=== PATIENT | female | born 1950 | race Caucasian/White ===

== ENCOUNTER 2018-02-06 21:05 | Inpatient (IN) ==
[2018-02-06] MEDS ORDERED: ONDANSETRON 4 MG/2 ML VIAL IV STA (21:24)
[2018-02-06] MEDS ORDERED: MORPHINE 4 MG/1 ML VIAL IV STA (21:24)
[2018-02-06] MEDS ORDERED: diphenhydrAMINE 50 MG/1 ML VIAL IV STA (21:30)
[2018-02-06 21:34] LABS: Basophils # 0.1 10*3/uL (0.0-0.2); Basophils % 0.7 % (0.0-0.8); Eosinophils # 0.3 10*3/uL (0.0-0.87); Eosinophils % 2.8 % (0.00-10.9); Hematocrit 42.4 VOL% (35.7-47.0); Hemoglobin 13.7 GM/DL (12.0-16.0); Immature Granulocytes % 0.4 %; Immature Granulocytes Absolute 0.05 #; Lymphocytes # 1.8 10*3/uL (1.4-4.0); Mean Corpuscular HGB Conc 32.3 GM/DL (32-36); Mean Corpuscular Hemoglobin 26 PG (27-34); Mean Corpuscular Volume 81.1 FL (87-102); Monocytes # 1.4 10*3/uL (0.11-0.8); Monocytes % 11.4 % (1.7-12.7); Neutrophils # 8.3 10*3/uL (1.4-7.4); Neutrophils % 69.7 % (38.7-73.9); Platelet Count 193 T/CUMM (130-400); Red Blood Count 5.23 MC/CUMM (3.8-5.5); Red Cell Distribution Width 14.2 % (9.3-17.3); White Blood Count 11.9 T/CUMM (4-12)
[2018-02-06 21:49] LABS: Albumin 3.1 G/DL (3.4-5.0); Bilirubin,Total 1.1 MG/DL (0.2-1.0); Osmolality,Calculated 284.7 MOS/KG (273-304); Potassium 4.2 MMOL/L (3.5-5.1); Total Protein 6.8 G/DL (6.4-8.3)
[2018-02-06] MEDS ORDERED: LACTATED RINGERS 1,000 ML IV SCH (22:30)
[2018-02-06] MEDS: SODIUM CHLORIDE 0.9% 1,000 ML IV SCH (23:44)
[2018-02-07 00:48] LABS: Bilirubin,Total 1.2 MG/DL (0.2-1.0); Potassium 4.3 MMOL/L (3.5-5.1); Total Protein 6.8 G/DL (6.4-8.3)
[2018-02-07] MEDS: HYDROmorphone 2 MG/1 ML VIAL IV PRN ×3 (01:34→11:28)
[2018-02-07] MEDS ORDERED: GLUCAGON 1 MG VIAL IM PRN (06:37)
[2018-02-07] MEDS ORDERED: DEXTROSE 50% 25 GM/50 ML VIAL IV PRN (06:37)
[2018-02-07] MEDS ORDERED: ceFAZolin 2,000 MG in PREMIX 1 EACH IV ONE ×2 (06:38→15:00)
[2018-02-07] MEDS: SODIUM CHLORIDE 0.9% 1,000 ML IV SCH ×3 (07:47→21:32)
[2018-02-07] MEDS ORDERED: traMADol 50 MG TABLET PO PRN (08:37)
[2018-02-07] MEDS ORDERED: GABAPENTIN 300 MG CAPSULE PO SCH (09:00)
[2018-02-07] MEDS: CARVEDILOL 3.125 MG TABLET PO SCH ×2 (09:11→21:12)
[2018-02-07] MEDS: MULTIVITAMIN (CENTRUM) TABLET PO SCH ×2 (09:28→21:12)
[2018-02-07] MEDS: CALCIUM (CARBONATE)/VITAMIN D 600 MG-400 UNIT TABLET PO SCH ×2 (09:28→21:12)
[2018-02-07] MEDS: metFORMIN 500 MG TABLET PO SCH (09:28)
[2018-02-07] MEDS: FERROUS SULFATE ER 140 MG TABLET PO SCH (09:29)
[2018-02-07] MEDS: FAMOTIDINE 20 MG TABLET PO SCH ×2 (09:29→21:12)
[2018-02-07] MEDS: CHLORTHALIDONE 25 MG TABLET PO SCH (09:29)
[2018-02-07] MEDS: GABAPENTIN 600 MG TABLET PO SCH ×5 (09:29→21:12)
[2018-02-07] MEDS: ZINC GLUCONATE 50 MG TABLET PO SCH (09:30)
[2018-02-07] MEDS: CHOLECALCIFEROL 1,000 UNIT TABLET PO SCH (09:30)
[2018-02-07] MEDS: MAGNESIUM CHLORIDE 64 MG TABLET PO SCH ×2 (09:30→21:12)
[2018-02-07] MEDS: INSULIN LISPRO 100 UNIT/ML SUBCUT SCH ×2 (10:03→19:16)
[2018-02-07] MEDS ORDERED: ROPIVACAINE 0.5% 30 ML VIAL ONE (15:12)
[2018-02-07] MEDS ORDERED: LACTULOSE 20 GM/30 ML UDCUP PO PRN (17:08)
[2018-02-07] MEDS ORDERED: ONDANSETRON 4 MG/2 ML VIAL IV PRN (17:08)
[2018-02-07] MEDS ORDERED: MORPHINE 4 MG/1 ML VIAL IV PRN ×2 (17:08→17:31)
[2018-02-07] MEDS ORDERED: NALOXONE 0.4 MG/ML VIAL IV PRN (17:08)
[2018-02-07] MEDS ORDERED: HYDROmorphone 2 MG/1 ML VIAL ONE (17:27)
[2018-02-07] MEDS ORDERED: fentaNYL 100 MCG/2 ML VIAL ONE (17:29)
[2018-02-07] MEDS ORDERED: ONDANSETRON 4 MG/2 ML VIAL ONE (17:29)
[2018-02-07] MEDS ORDERED: SEVOFLURANE 1 UNIT/15 MINUTE INH ONE (17:29)
[2018-02-07] MEDS ORDERED: ROCURONIUM 100 MG/10 ML VIAL IV ONE (17:29)
[2018-02-07] MEDS ORDERED: PROPOFOL 200 MG/20 ML VIAL IV ONE (17:29)
[2018-02-07] MEDS ORDERED: LACTATED RINGERS 1,000 ML IV ONE (17:29)
[2018-02-07] MEDS ORDERED: MIDAZOLAM 2 MG/2 ML VIAL ONE (17:29)
[2018-02-07] MEDS ORDERED: SODIUM CHLORIDE 0.9% 1,000 ML IV ONE (17:30)
[2018-02-07] MEDS ORDERED: MORPHINE PCA 30 MG/30 ML SYRINGE IV SCH (17:30)
[2018-02-07] MEDS ORDERED: MORPHINE PCA 30 MG/30 ML SYRINGE IV ONE (18:03)
[2018-02-07] MEDS ORDERED: Liraglutide [Victoza 2-Pak] 1.2 MG SUBCUT SCH (21:00)
[2018-02-07] MEDS: INSULIN GLARGINE 100 UNIT/ML SUBCUT SCH (21:11)
[2018-02-07] MEDS: AMITRIPTYLINE 25 MG TABLET PO SCH (21:12)
[2018-02-07] MEDS: diphenhydrAMINE CAP 25 MG CAPSULE PO SCH (21:12)
[2018-02-07] MEDS: ATORVASTATIN 10 MG TABLET PO SCH (21:12)
[2018-02-07] MEDS ORDERED: metFORMIN 500 MG TABLET PO SCH (22:30)
[2018-02-08] MEDS: INSULIN LISPRO 100 UNIT/ML SUBCUT SCH ×4 (00:39→18:13)
[2018-02-08] MEDS: ceFAZolin 2,000 MG in PREMIX 1 EACH IV SCH ×3 (00:40→16:10)
[2018-02-08] MEDS: metFORMIN 500 MG TABLET PO SCH ×3 (03:28→17:35)
[2018-02-08 06:27] LABS: Basophils # 0.1 10*3/uL (0.0-0.2); Basophils % 0.4 % (0.0-0.8); Eosinophils # 0.2 10*3/uL (0.0-0.87); Eosinophils % 1.5 % (0.00-10.9); Hematocrit 31.5 VOL% (35.7-47.0); Immature Granulocytes % 0.3 %; Immature Granulocytes Absolute 0.04 #; Lymphocytes # 1.5 10*3/uL (1.4-4.0); Lymphocytes % 10.8 % (21.3-54.2); Mean Corpuscular HGB Conc 31.7 GM/DL (32-36); Mean Corpuscular Hemoglobin 26 PG (27-34); Mean Corpuscular Volume 83.1 FL (87-102); Mean Platelet Volume 12.3 FL (9.6-12.0); Monocytes # 2.3 10*3/uL (0.11-0.8); Monocytes % 16.5 % (1.7-12.7); Neutrophils # 9.9 10*3/uL (1.4-7.4); Neutrophils % 70.5 % (38.7-73.9); Platelet Count 183 T/CUMM (130-400); Red Blood Count 3.79 MC/CUMM (3.8-5.5); Red Cell Distribution Width 14.6 % (9.3-17.3)
[2018-02-08 06:44] LABS: Calcium 8.2 MG/DL (8.5-10.1); Osmolality,Calculated 277.7 MOS/KG (273-304); Potassium 4.1 MMOL/L (3.5-5.1)
[2018-02-08 06:57] LABS: Band Neutrophils 2 % (0-10); Eosinophils 2 % (0-10); Hypochromasia 1+; Lymphocytes 7 % (20-55); Platelet Estimate Adequate; Segmented Neutrophils 70 % (50-85); Total Cells Counted 100
[2018-02-08] MEDS ORDERED: Biotin [Biotin] 1,000 MCG PO SCH (09:00)
[2018-02-08] MEDS: FONDAPARINUX 2.5 MG/0.5 ML SYRINGE SUBCUT SCH (09:04)
[2018-02-08] MEDS: ZINC GLUCONATE 50 MG TABLET PO SCH (09:05)
[2018-02-08] MEDS: CHOLECALCIFEROL 1,000 UNIT TABLET PO SCH (09:06)
[2018-02-08] MEDS: MAGNESIUM CHLORIDE 64 MG TABLET PO SCH ×2 (09:07→20:32)
[2018-02-08] MEDS: CARVEDILOL 3.125 MG TABLET PO SCH ×2 (09:07→20:32)
[2018-02-08] MEDS: CALCIUM (CARBONATE)/VITAMIN D 600 MG-400 UNIT TABLET PO SCH ×2 (09:07→20:32)
[2018-02-08] MEDS: GABAPENTIN 600 MG TABLET PO SCH ×4 (09:07→20:32)
[2018-02-08] MEDS: CHLORTHALIDONE 25 MG TABLET PO SCH (09:07)
[2018-02-08] MEDS: MULTIVITAMIN (CENTRUM) TABLET PO SCH ×2 (09:07→20:32)
[2018-02-08] MEDS: FERROUS SULFATE ER 140 MG TABLET PO SCH (09:08)
[2018-02-08] MEDS: FAMOTIDINE 20 MG TABLET PO SCH ×2 (09:08→20:32)
[2018-02-08] MEDS: SODIUM CHLORIDE 0.9% 1,000 ML IV SCH (18:13)
[2018-02-08] MEDS: ATORVASTATIN 10 MG TABLET PO SCH (20:32)
[2018-02-08] MEDS: diphenhydrAMINE CAP 25 MG CAPSULE PO SCH (20:32)
[2018-02-08] MEDS: AMITRIPTYLINE 25 MG TABLET PO SCH (20:32)
[2018-02-08] MEDS: INSULIN GLARGINE 100 UNIT/ML SUBCUT SCH (20:33)
[2018-02-09] MEDS: INSULIN LISPRO 100 UNIT/ML SUBCUT SCH ×4 (00:50→18:52)
[2018-02-09] MEDS: SODIUM CHLORIDE 0.9% 1,000 ML IV SCH (00:54)
[2018-02-09 06:00] LABS: Basophils # 0.1 10*3/uL (0.0-0.2); Basophils % 0.4 % (0.0-0.8); Eosinophils # 0.1 10*3/uL (0.0-0.87); Eosinophils % 0.3 % (0.00-10.9); Hematocrit 29.5 VOL% (35.7-47.0); Hemoglobin 9.7 GM/DL (12.0-16.0); Immature Granulocytes % 0.5 %; Immature Granulocytes Absolute 0.09 #; Lymphocytes # 1.8 10*3/uL (1.4-4.0); Lymphocytes % 10.8 % (21.3-54.2); Mean Corpuscular HGB Conc 32.9 GM/DL (32-36); Mean Corpuscular Hemoglobin 27 PG (27-34); Mean Corpuscular Volume 81.7 FL (87-102); Mean Platelet Volume 12.2 FL (9.6-12.0); Monocytes % 17.8 % (1.7-12.7); Neutrophils # 11.7 10*3/uL (1.4-7.4); Neutrophils % 70.2 % (38.7-73.9); Platelet Count 157 T/CUMM (130-400); Red Blood Count 3.61 MC/CUMM (3.8-5.5); Red Cell Distribution Width 14.4 % (9.3-17.3); White Blood Count 16.7 T/CUMM (4-12)
[2018-02-09 06:38] LABS: Calcium 8.3 MG/DL (8.5-10.1); Osmolality,Calculated 278.8 MOS/KG (273-304); Potassium 3.9 MMOL/L (3.5-5.1)
[2018-02-09 07:06] LABS: Band Neutrophils 2 % (0-10); Lymphocytes 11 % (20-55); Platelet Estimate Normal; Segmented Neutrophils 68 % (50-85); Total Cells Counted 100
[2018-02-09] MEDS: CHOLECALCIFEROL 1,000 UNIT TABLET PO SCH (09:20)
[2018-02-09] MEDS: ZINC GLUCONATE 50 MG TABLET PO SCH (09:20)
[2018-02-09] MEDS: CHLORTHALIDONE 25 MG TABLET PO SCH (09:21)
[2018-02-09] MEDS: MAGNESIUM HYDROXIDE SUSP 30 ML UDCUP PO PRN (09:21)
[2018-02-09] MEDS: GABAPENTIN 600 MG TABLET PO SCH ×4 (09:21→21:22)
[2018-02-09] MEDS: FONDAPARINUX 2.5 MG/0.5 ML SYRINGE SUBCUT SCH (09:21)
[2018-02-09] MEDS: FERROUS SULFATE ER 140 MG TABLET PO SCH (09:21)
[2018-02-09] MEDS: MAGNESIUM CHLORIDE 64 MG TABLET PO SCH ×2 (09:21→21:23)
[2018-02-09] MEDS: CALCIUM (CARBONATE)/VITAMIN D 600 MG-400 UNIT TABLET PO SCH ×2 (09:21→21:23)
[2018-02-09] MEDS: CARVEDILOL 3.125 MG TABLET PO SCH ×2 (09:21→21:23)
[2018-02-09] MEDS: MULTIVITAMIN (CENTRUM) TABLET PO SCH ×2 (09:21→21:22)
[2018-02-09] MEDS: metFORMIN 500 MG TABLET PO SCH ×2 (09:21→16:42)
[2018-02-09] MEDS: FAMOTIDINE 20 MG TABLET PO SCH ×2 (09:21→21:22)
[2018-02-09] MEDS: ATORVASTATIN 10 MG TABLET PO SCH (21:23)
[2018-02-09] MEDS: diphenhydrAMINE CAP 25 MG CAPSULE PO SCH (21:23)
[2018-02-09] MEDS: AMITRIPTYLINE 25 MG TABLET PO SCH (21:23)
[2018-02-09] MEDS: INSULIN GLARGINE 100 UNIT/ML SUBCUT SCH (21:23)
[2018-02-10] MEDS: INSULIN LISPRO 100 UNIT/ML SUBCUT SCH ×5 (00:30→23:21)
[2018-02-10] MEDS: ZINC GLUCONATE 50 MG TABLET PO SCH (11:03)
[2018-02-10] MEDS: FONDAPARINUX 2.5 MG/0.5 ML SYRINGE SUBCUT SCH (11:03)
[2018-02-10] MEDS: CARVEDILOL 3.125 MG TABLET PO SCH ×2 (11:04→21:04)
[2018-02-10] MEDS: MULTIVITAMIN (CENTRUM) TABLET PO SCH ×2 (11:04→21:04)
[2018-02-10] MEDS: FERROUS SULFATE ER 140 MG TABLET PO SCH (11:04)
[2018-02-10] MEDS: CHOLECALCIFEROL 1,000 UNIT TABLET PO SCH (11:04)
[2018-02-10] MEDS: CHLORTHALIDONE 25 MG TABLET PO SCH (11:04)
[2018-02-10] MEDS: GABAPENTIN 600 MG TABLET PO SCH ×4 (11:04→21:04)
[2018-02-10] MEDS: metFORMIN 500 MG TABLET PO SCH ×2 (11:04→17:27)
[2018-02-10] MEDS: FAMOTIDINE 20 MG TABLET PO SCH ×2 (11:05→21:04)
[2018-02-10] MEDS: CALCIUM (CARBONATE)/VITAMIN D 600 MG-400 UNIT TABLET PO SCH ×2 (11:05→21:04)
[2018-02-10] MEDS: MAGNESIUM CHLORIDE 64 MG TABLET PO SCH ×2 (11:07→21:04)
[2018-02-10] MEDS: BISACODYL 10 MG SUPP RECTAL PRN (21:03)
[2018-02-10] MEDS: AMITRIPTYLINE 25 MG TABLET PO SCH (21:04)
[2018-02-10] MEDS: ATORVASTATIN 10 MG TABLET PO SCH (21:05)
[2018-02-10] MEDS: INSULIN GLARGINE 100 UNIT/ML SUBCUT SCH (21:05)
[2018-02-10] MEDS: diphenhydrAMINE CAP 25 MG CAPSULE PO SCH (21:05)
[2018-02-11 03:11] LABS: Basophils # 0.1 10*3/uL (0.0-0.2); Basophils % 0.5 % (0.0-0.8); Eosinophils # 0.7 10*3/uL (0.0-0.87); Eosinophils % 4.4 % (0.00-10.9); Hematocrit 26.9 VOL% (35.7-47.0); Hemoglobin 8.7 GM/DL (12.0-16.0); Immature Granulocytes % 0.8 %; Immature Granulocytes Absolute 0.12 #; Lymphocytes # 2.9 10*3/uL (1.4-4.0); Lymphocytes % 19.4 % (21.3-54.2); Mean Corpuscular HGB Conc 32.3 GM/DL (32-36); Mean Corpuscular Hemoglobin 27 PG (27-34); Mean Corpuscular Volume 82.5 FL (87-102); Mean Platelet Volume 11.6 FL (9.6-12.0); Monocytes # 2.5 10*3/uL (0.11-0.8); Monocytes % 16.8 % (1.7-12.7); NRBC # 0.02 10*3/uL; Neutrophils # 8.6 10*3/uL (1.4-7.4); Neutrophils % 58.1 % (38.7-73.9); Platelet Count 233 T/CUMM (130-400); Red Blood Count 3.26 MC/CUMM (3.8-5.5); Red Cell Distribution Width 14.3 % (9.3-17.3); White Blood Count 14.8 T/CUMM (4-12)
[2018-02-11 03:26] LABS: Calcium 8.1 MG/DL (8.5-10.1); Osmolality,Calculated 274.1 MOS/KG (273-304); Potassium 3.5 MMOL/L (3.5-5.1)
[2018-02-11 03:54] LABS: Eosinophils 2 % (0-10); Lymphocytes 22 % (20-55); Segmented Neutrophils 59 % (50-85); Total Cells Counted 100
[2018-02-11 03:55] LABS: Hypochromasia 1+; Platelet Estimate Normal; Polychromasia Few; Reactive Lymphocytes 1+
[2018-02-11] MEDS: INSULIN LISPRO 100 UNIT/ML SUBCUT SCH ×3 (05:53→19:05)
[2018-02-11] MEDS: FONDAPARINUX 2.5 MG/0.5 ML SYRINGE SUBCUT SCH (08:53)
[2018-02-11] MEDS: CHOLECALCIFEROL 1,000 UNIT TABLET PO SCH (08:59)
[2018-02-11] MEDS: CARVEDILOL 3.125 MG TABLET PO SCH ×2 (09:00→21:04)
[2018-02-11] MEDS: FAMOTIDINE 20 MG TABLET PO SCH ×2 (09:00→21:03)
[2018-02-11] MEDS: MULTIVITAMIN (CENTRUM) TABLET PO SCH ×2 (09:00→21:03)
[2018-02-11] MEDS: MAGNESIUM CHLORIDE 64 MG TABLET PO SCH ×2 (09:00→21:03)
[2018-02-11] MEDS: ZINC GLUCONATE 50 MG TABLET PO SCH (09:00)
[2018-02-11] MEDS: FERROUS SULFATE ER 140 MG TABLET PO SCH (09:00)
[2018-02-11] MEDS: GABAPENTIN 600 MG TABLET PO SCH ×4 (09:00→21:02)
[2018-02-11] MEDS: CALCIUM (CARBONATE)/VITAMIN D 600 MG-400 UNIT TABLET PO SCH ×2 (09:00→21:03)
[2018-02-11] MEDS: metFORMIN 500 MG TABLET PO SCH ×2 (09:00→19:05)
[2018-02-11] MEDS: CHLORTHALIDONE 25 MG TABLET PO SCH (09:00)
[2018-02-11] MEDS: FERROUS SULFATE 325 MG TABLET PO SCH (13:16)
[2018-02-11] MEDS: DOCUSATE SODIUM 100 MG CAPSULE PO SCH ×2 (13:16→21:02)
[2018-02-11] MEDS: AMITRIPTYLINE 25 MG TABLET PO SCH (21:03)
[2018-02-11] MEDS: ATORVASTATIN 10 MG TABLET PO SCH (21:03)
[2018-02-11] MEDS: INSULIN GLARGINE 100 UNIT/ML SUBCUT SCH (21:04)
[2018-02-11] MEDS: diphenhydrAMINE CAP 25 MG CAPSULE PO SCH (21:04)
[2018-02-12] MEDS: INSULIN LISPRO 100 UNIT/ML SUBCUT SCH ×4 (00:07→18:23)
[2018-02-12] MEDS: MAGNESIUM CHLORIDE 64 MG TABLET PO SCH ×2 (10:07→20:52)
[2018-02-12] MEDS: GABAPENTIN 600 MG TABLET PO SCH ×4 (10:07→20:52)
[2018-02-12] MEDS: MULTIVITAMIN (CENTRUM) TABLET PO SCH ×2 (10:07→20:51)
[2018-02-12] MEDS: FAMOTIDINE 20 MG TABLET PO SCH ×2 (10:07→20:52)
[2018-02-12] MEDS: CHOLECALCIFEROL 1,000 UNIT TABLET PO SCH (10:08)
[2018-02-12] MEDS: metFORMIN 500 MG TABLET PO SCH ×2 (10:08→17:39)
[2018-02-12] MEDS: CALCIUM (CARBONATE)/VITAMIN D 600 MG-400 UNIT TABLET PO SCH ×2 (10:08→20:51)
[2018-02-12] MEDS: DOCUSATE SODIUM 100 MG CAPSULE PO SCH ×2 (10:09→20:53)
[2018-02-12] MEDS: FERROUS SULFATE 325 MG TABLET PO SCH (10:10)
[2018-02-12] MEDS: FONDAPARINUX 2.5 MG/0.5 ML SYRINGE SUBCUT SCH (10:10)
[2018-02-12] MEDS: CHLORTHALIDONE 25 MG TABLET PO SCH (10:10)
[2018-02-12] MEDS: CARVEDILOL 3.125 MG TABLET PO SCH ×2 (10:10→20:51)
[2018-02-12] MEDS: ZINC GLUCONATE 50 MG TABLET PO SCH (11:41)
[2018-02-12] MEDS: diphenhydrAMINE CAP 25 MG CAPSULE PO SCH (20:51)
[2018-02-12] MEDS: INSULIN GLARGINE 100 UNIT/ML SUBCUT SCH (20:52)
[2018-02-12] MEDS: AMITRIPTYLINE 25 MG TABLET PO SCH (20:52)
[2018-02-12] MEDS: ATORVASTATIN 10 MG TABLET PO SCH (20:52)
[2018-02-13] MEDS: INSULIN LISPRO 100 UNIT/ML SUBCUT SCH ×5 (00:40→23:49)
[2018-02-13] MEDS: BISACODYL 10 MG SUPP RECTAL PRN (04:16)
[2018-02-13] MEDS: MAGNESIUM HYDROXIDE SUSP 30 ML UDCUP PO PRN (05:07)
[2018-02-13] MEDS: FONDAPARINUX 2.5 MG/0.5 ML SYRINGE SUBCUT SCH (08:57)
[2018-02-13] MEDS: CHOLECALCIFEROL 1,000 UNIT TABLET PO SCH (08:58)
[2018-02-13] MEDS: metFORMIN 500 MG TABLET PO SCH ×2 (08:58→18:18)
[2018-02-13] MEDS: MAGNESIUM CHLORIDE 64 MG TABLET PO SCH ×2 (08:58→21:14)
[2018-02-13] MEDS: FAMOTIDINE 20 MG TABLET PO SCH ×2 (08:58→21:14)
[2018-02-13] MEDS: DOCUSATE SODIUM 100 MG CAPSULE PO SCH ×2 (08:58→21:14)
[2018-02-13] MEDS: FERROUS SULFATE 325 MG TABLET PO SCH (08:59)
[2018-02-13] MEDS: CHLORTHALIDONE 25 MG TABLET PO SCH (08:59)
[2018-02-13] MEDS: CARVEDILOL 3.125 MG TABLET PO SCH ×2 (08:59→21:14)
[2018-02-13] MEDS: CALCIUM (CARBONATE)/VITAMIN D 600 MG-400 UNIT TABLET PO SCH ×2 (08:59→21:14)
[2018-02-13] MEDS: ZINC GLUCONATE 50 MG TABLET PO SCH (09:09)
[2018-02-13] MEDS: GABAPENTIN 600 MG TABLET PO SCH ×4 (09:09→21:14)
[2018-02-13] MEDS: MULTIVITAMIN (CENTRUM) TABLET PO SCH ×2 (09:09→21:14)
[2018-02-13 12:06] LABS: Basophils # 0.1 10*3/uL (0.0-0.2); Basophils % 0.3 % (0.0-0.8); Eosinophils # 0.5 10*3/uL (0.0-0.87); Eosinophils % 2.6 % (0.00-10.9); Hematocrit 28.9 VOL% (35.7-47.0); Hemoglobin 9.3 GM/DL (12.0-16.0); Immature Granulocytes % 1.3 %; Immature Granulocytes Absolute 0.24 #; Lymphocytes # 2.1 10*3/uL (1.4-4.0); Lymphocytes % 11.6 % (21.3-54.2); Mean Corpuscular HGB Conc 32.2 GM/DL (32-36); Mean Corpuscular Hemoglobin 27 PG (27-34); Mean Corpuscular Volume 82.3 FL (87-102); Mean Platelet Volume 10.3 FL (9.6-12.0); Monocytes # 2.9 10*3/uL (0.11-0.8); Monocytes % 16.1 % (1.7-12.7); NRBC # 0.04 10*3/uL; Neutrophils # 12.2 10*3/uL (1.4-7.4); Neutrophils % 68.1 % (38.7-73.9); Platelet Count 364 T/CUMM (130-400); Red Blood Count 3.51 MC/CUMM (3.8-5.5); Red Cell Distribution Width 14.4 % (9.3-17.3)
[2018-02-13 12:36] LABS: Calcium 8.2 MG/DL (8.5-10.1); Osmolality,Calculated 274.1 MOS/KG (273-304); Potassium 3.6 MMOL/L (3.5-5.1)
[2018-02-13 15:36] LABS: Eosinophils 3 % (0-10); Lymphocytes 7 % (20-55); Segmented Neutrophils 70 % (50-85); Total Cells Counted 100
[2018-02-13 15:37] LABS: Platelet Estimate Increased; Polychromasia 1+
[2018-02-13 15:38] LABS: Microcytosis Slight; Stomatocytes Few
[2018-02-13] MEDS: PANTOPRAZOLE 40 MG TABLET PO SCH (15:41)
[2018-02-13] MEDS: diphenhydrAMINE CAP 25 MG CAPSULE PO SCH (21:14)
[2018-02-13] MEDS: AMITRIPTYLINE 25 MG TABLET PO SCH (21:14)
[2018-02-13] MEDS: INSULIN GLARGINE 100 UNIT/ML SUBCUT SCH (21:19)
[2018-02-13] MEDS: ATORVASTATIN 10 MG TABLET PO SCH (21:47)
[2018-02-14] MEDS: INSULIN LISPRO 100 UNIT/ML SUBCUT SCH ×3 (06:12→17:43)
[2018-02-14] MEDS: PANTOPRAZOLE 40 MG TABLET PO SCH (08:01)
[2018-02-14] MEDS: MULTIVITAMIN (CENTRUM) TABLET PO SCH ×2 (08:01→21:29)
[2018-02-14] MEDS: GABAPENTIN 600 MG TABLET PO SCH ×4 (08:01→21:29)
[2018-02-14] MEDS: FAMOTIDINE 20 MG TABLET PO SCH ×2 (08:01→21:29)
[2018-02-14] MEDS: CHLORTHALIDONE 25 MG TABLET PO SCH (08:01)
[2018-02-14] MEDS: CHOLECALCIFEROL 1,000 UNIT TABLET PO SCH (08:01)
[2018-02-14] MEDS: CALCIUM (CARBONATE)/VITAMIN D 600 MG-400 UNIT TABLET PO SCH ×2 (08:01→21:29)
[2018-02-14] MEDS: FONDAPARINUX 2.5 MG/0.5 ML SYRINGE SUBCUT SCH (08:01)
[2018-02-14] MEDS: DOCUSATE SODIUM 100 MG CAPSULE PO SCH ×2 (08:02→21:29)
[2018-02-14] MEDS: metFORMIN 500 MG TABLET PO SCH ×2 (08:02→17:42)
[2018-02-14] MEDS: FERROUS SULFATE 325 MG TABLET PO SCH (08:02)
[2018-02-14] MEDS: CARVEDILOL 3.125 MG TABLET PO SCH ×2 (08:02→21:33)
[2018-02-14] MEDS: MAGNESIUM CHLORIDE 64 MG TABLET PO SCH ×2 (08:02→21:29)
[2018-02-14] MEDS: ZINC GLUCONATE 50 MG TABLET PO SCH (08:03)
[2018-02-14] MEDS: ATORVASTATIN 10 MG TABLET PO SCH (21:29)
[2018-02-14] MEDS: AMITRIPTYLINE 25 MG TABLET PO SCH (21:29)
[2018-02-14] MEDS: diphenhydrAMINE CAP 25 MG CAPSULE PO SCH (21:33)
[2018-02-14] MEDS: INSULIN GLARGINE 100 UNIT/ML SUBCUT SCH (21:34)
[2018-02-15] MEDS: INSULIN LISPRO 100 UNIT/ML SUBCUT SCH ×4 (02:10→19:23)
[2018-02-15] MEDS: CALCIUM (CARBONATE)/VITAMIN D 600 MG-400 UNIT TABLET PO SCH ×2 (11:32→20:43)
[2018-02-15] MEDS: FONDAPARINUX 2.5 MG/0.5 ML SYRINGE SUBCUT SCH (11:33)
[2018-02-15] MEDS: GABAPENTIN 600 MG TABLET PO SCH ×4 (11:43→20:43)
[2018-02-15] MEDS: PANTOPRAZOLE 40 MG TABLET PO SCH (11:44)
[2018-02-15] MEDS: CARVEDILOL 3.125 MG TABLET PO SCH ×2 (11:44→20:44)
[2018-02-15] MEDS: MULTIVITAMIN (CENTRUM) TABLET PO SCH ×2 (11:44→20:44)
[2018-02-15] MEDS: FERROUS SULFATE 325 MG TABLET PO SCH (11:45)
[2018-02-15] MEDS: FAMOTIDINE 20 MG TABLET PO SCH ×2 (11:45→20:43)
[2018-02-15] MEDS: metFORMIN 500 MG TABLET PO SCH ×2 (11:46→18:43)
[2018-02-15] MEDS: MAGNESIUM CHLORIDE 64 MG TABLET PO SCH ×2 (11:47→20:43)
[2018-02-15] MEDS: CHOLECALCIFEROL 1,000 UNIT TABLET PO SCH (11:47)
[2018-02-15] MEDS: DOCUSATE SODIUM 100 MG CAPSULE PO SCH ×2 (11:48→20:44)
[2018-02-15] MEDS: CHLORTHALIDONE 25 MG TABLET PO SCH (11:48)
[2018-02-15] MEDS: ZINC GLUCONATE 50 MG TABLET PO SCH (11:48)
[2018-02-15] MEDS: AMITRIPTYLINE 25 MG TABLET PO SCH (20:43)
[2018-02-15] MEDS: diphenhydrAMINE CAP 25 MG CAPSULE PO SCH (20:43)
[2018-02-15] MEDS: ATORVASTATIN 10 MG TABLET PO SCH (20:43)
[2018-02-15] MEDS: INSULIN GLARGINE 100 UNIT/ML SUBCUT SCH (20:44)
[2018-02-16] MEDS: INSULIN LISPRO 100 UNIT/ML SUBCUT SCH ×2 (00:46→06:10)
[2018-02-16] MEDS: GABAPENTIN 600 MG TABLET PO SCH ×4 (09:56→21:08)
[2018-02-16] MEDS: metFORMIN 500 MG TABLET PO SCH ×2 (09:56→16:54)
[2018-02-16] MEDS: MAGNESIUM CHLORIDE 64 MG TABLET PO SCH ×2 (09:56→21:08)
[2018-02-16] MEDS: FONDAPARINUX 2.5 MG/0.5 ML SYRINGE SUBCUT SCH (09:56)
[2018-02-16] MEDS: MULTIVITAMIN (CENTRUM) TABLET PO SCH ×2 (09:56→21:07)
[2018-02-16] MEDS: CHLORTHALIDONE 25 MG TABLET PO SCH (09:57)
[2018-02-16] MEDS: CARVEDILOL 3.125 MG TABLET PO SCH ×2 (09:57→21:07)
[2018-02-16] MEDS: CALCIUM (CARBONATE)/VITAMIN D 600 MG-400 UNIT TABLET PO SCH ×2 (09:57→21:08)
[2018-02-16] MEDS: DOCUSATE SODIUM 100 MG CAPSULE PO SCH ×2 (09:57→21:07)
[2018-02-16] MEDS: CHOLECALCIFEROL 1,000 UNIT TABLET PO SCH (09:57)
[2018-02-16] MEDS: FERROUS SULFATE 325 MG TABLET PO SCH (09:57)
[2018-02-16] MEDS: PANTOPRAZOLE 40 MG TABLET PO SCH (09:57)
[2018-02-16] MEDS: FAMOTIDINE 20 MG TABLET PO SCH ×2 (09:57→21:07)
[2018-02-16] MEDS: ZINC GLUCONATE 50 MG TABLET PO SCH (09:58)
[2018-02-16] MEDS: INSULIN GLARGINE 100 UNIT/ML SUBCUT SCH (21:05)
[2018-02-16] MEDS: diphenhydrAMINE CAP 25 MG CAPSULE PO SCH (21:06)
[2018-02-16] MEDS: AMITRIPTYLINE 25 MG TABLET PO SCH (21:07)
[2018-02-16] MEDS: ATORVASTATIN 10 MG TABLET PO SCH (21:08)
[2018-02-17] MEDS: INSULIN LISPRO 100 UNIT/ML SUBCUT SCH ×6 (01:24→22:08)
[2018-02-17 05:26] LABS: Basophils # 0.1 10*3/uL (0.0-0.2); Basophils % 0.5 % (0.0-0.8); Eosinophils # 0.7 10*3/uL (0.0-0.87); Eosinophils % 4.4 % (0.00-10.9); Hematocrit 30.3 VOL% (35.7-47.0); Hemoglobin 9.5 GM/DL (12.0-16.0); Immature Granulocytes % 2.9 %; Immature Granulocytes Absolute 0.45 #; Lymphocytes # 2.7 10*3/uL (1.4-4.0); Lymphocytes % 17.4 % (21.3-54.2); Mean Corpuscular HGB Conc 31.4 GM/DL (32-36); Mean Corpuscular Hemoglobin 26 PG (27-34); Monocytes # 2.3 10*3/uL (0.11-0.8); Monocytes % 14.5 % (1.7-12.7); NRBC # 0.02 10*3/uL; Neutrophils # 9.4 10*3/uL (1.4-7.4); Neutrophils % 60.3 % (38.7-73.9); Platelet Count 509 T/CUMM (130-400); Red Blood Count 3.65 MC/CUMM (3.8-5.5); Red Cell Distribution Width 14.9 % (9.3-17.3); White Blood Count 15.5 T/CUMM (4-12)
[2018-02-17] MEDS: CHOLECALCIFEROL 1,000 UNIT TABLET PO SCH (09:25)
[2018-02-17] MEDS: MAGNESIUM CHLORIDE 64 MG TABLET PO SCH ×2 (09:25→22:07)
[2018-02-17] MEDS: PANTOPRAZOLE 40 MG TABLET PO SCH (09:25)
[2018-02-17] MEDS: ZINC GLUCONATE 50 MG TABLET PO SCH (09:25)
[2018-02-17] MEDS: DOCUSATE SODIUM 100 MG CAPSULE PO SCH ×2 (09:25→22:07)
[2018-02-17] MEDS: FERROUS SULFATE 325 MG TABLET PO SCH (09:25)
[2018-02-17] MEDS: MULTIVITAMIN (CENTRUM) TABLET PO SCH ×2 (09:25→22:06)
[2018-02-17] MEDS: FAMOTIDINE 20 MG TABLET PO SCH ×2 (09:25→22:20)
[2018-02-17] MEDS: metFORMIN 500 MG TABLET PO SCH ×2 (09:25→16:41)
[2018-02-17] MEDS: CALCIUM (CARBONATE)/VITAMIN D 600 MG-400 UNIT TABLET PO SCH ×2 (09:26→22:07)
[2018-02-17] MEDS: CARVEDILOL 3.125 MG TABLET PO SCH ×2 (09:26→22:07)
[2018-02-17] MEDS: GABAPENTIN 600 MG TABLET PO SCH ×4 (09:26→22:06)
[2018-02-17] MEDS: CHLORTHALIDONE 25 MG TABLET PO SCH (09:26)
[2018-02-17] MEDS: FONDAPARINUX 2.5 MG/0.5 ML SYRINGE SUBCUT SCH (09:26)
[2018-02-17] MEDS: diphenhydrAMINE CAP 25 MG CAPSULE PO SCH (22:07)
[2018-02-17] MEDS: AMITRIPTYLINE 25 MG TABLET PO SCH (22:07)
[2018-02-17] MEDS: INSULIN GLARGINE 100 UNIT/ML SUBCUT SCH (22:08)
[2018-02-17] MEDS: ATORVASTATIN 10 MG TABLET PO SCH (22:08)
[2018-02-18] MEDS: INSULIN LISPRO 100 UNIT/ML SUBCUT SCH ×4 (01:43→18:15)
[2018-02-18 05:54] LABS: Basophils # 0.1 10*3/uL (0.0-0.2); Basophils % 0.4 % (0.0-0.8); Eosinophils # 0.6 10*3/uL (0.0-0.87); Eosinophils % 4.1 % (0.00-10.9); Hematocrit 30.7 VOL% (35.7-47.0); Hemoglobin 9.6 GM/DL (12.0-16.0); Immature Granulocytes % 2.7 %; Immature Granulocytes Absolute 0.42 #; Lymphocytes # 2.6 10*3/uL (1.4-4.0); Lymphocytes % 16.4 % (21.3-54.2); Mean Corpuscular HGB Conc 31.3 GM/DL (32-36); Mean Corpuscular Hemoglobin 26 PG (27-34); Mean Corpuscular Volume 83.9 FL (87-102); Mean Platelet Volume 9.8 FL (9.6-12.0); Monocytes # 1.8 10*3/uL (0.11-0.8); Monocytes % 11.7 % (1.7-12.7); NRBC # 0.04 10*3/uL; Neutrophils # 10.1 10*3/uL (1.4-7.4); Neutrophils % 64.7 % (38.7-73.9); Platelet Count 509 T/CUMM (130-400); Red Blood Count 3.66 MC/CUMM (3.8-5.5); White Blood Count 15.6 T/CUMM (4-12)
[2018-02-18 06:07] LABS: Calcium 8.2 MG/DL (8.5-10.1); Osmolality,Calculated 275.8 MOS/KG (273-304); Potassium 3.6 MMOL/L (3.5-5.1)
[2018-02-18] MEDS: GABAPENTIN 600 MG TABLET PO SCH ×4 (08:22→20:35)
[2018-02-18] MEDS: FONDAPARINUX 2.5 MG/0.5 ML SYRINGE SUBCUT SCH (08:22)
[2018-02-18] MEDS: MULTIVITAMIN (CENTRUM) TABLET PO SCH ×2 (08:22→20:35)
[2018-02-18] MEDS: CALCIUM (CARBONATE)/VITAMIN D 600 MG-400 UNIT TABLET PO SCH ×2 (08:22→20:37)
[2018-02-18] MEDS: MAGNESIUM CHLORIDE 64 MG TABLET PO SCH ×2 (08:23→20:35)
[2018-02-18] MEDS: DOCUSATE SODIUM 100 MG CAPSULE PO SCH ×2 (08:23→20:35)
[2018-02-18] MEDS: FAMOTIDINE 20 MG TABLET PO SCH ×2 (08:23→20:35)
[2018-02-18] MEDS: FERROUS SULFATE 325 MG TABLET PO SCH (08:24)
[2018-02-18] MEDS: CARVEDILOL 3.125 MG TABLET PO SCH ×2 (08:24→20:35)
[2018-02-18] MEDS: CHOLECALCIFEROL 1,000 UNIT TABLET PO SCH (08:24)
[2018-02-18] MEDS: metFORMIN 500 MG TABLET PO SCH ×2 (08:24→18:20)
[2018-02-18] MEDS: PANTOPRAZOLE 40 MG TABLET PO SCH (08:25)
[2018-02-18] MEDS: CHLORTHALIDONE 25 MG TABLET PO SCH (08:35)
[2018-02-18] MEDS: ZINC GLUCONATE 50 MG TABLET PO SCH (08:35)
[2018-02-18] MEDS: diphenhydrAMINE CAP 25 MG CAPSULE PO SCH (20:34)
[2018-02-18] MEDS: AMITRIPTYLINE 25 MG TABLET PO SCH (20:35)
[2018-02-18] MEDS: ATORVASTATIN 10 MG TABLET PO SCH (20:35)
[2018-02-18] MEDS: INSULIN GLARGINE 100 UNIT/ML SUBCUT SCH (20:36)
[2018-02-19] MEDS: INSULIN LISPRO 100 UNIT/ML SUBCUT SCH ×5 (00:35→20:23)
[2018-02-19] MEDS: FAMOTIDINE 20 MG TABLET PO SCH ×2 (09:43→20:09)
[2018-02-19] MEDS: MULTIVITAMIN (CENTRUM) TABLET PO SCH ×2 (09:44→20:09)
[2018-02-19] MEDS: CHOLECALCIFEROL 1,000 UNIT TABLET PO SCH (09:44)
[2018-02-19] MEDS: CHLORTHALIDONE 25 MG TABLET PO SCH (09:44)
[2018-02-19] MEDS: metFORMIN 500 MG TABLET PO SCH ×2 (09:44→20:19)
[2018-02-19] MEDS: FERROUS SULFATE 325 MG TABLET PO SCH (09:44)
[2018-02-19] MEDS: MAGNESIUM CHLORIDE 64 MG TABLET PO SCH ×2 (09:44→20:08)
[2018-02-19] MEDS: DOCUSATE SODIUM 100 MG CAPSULE PO SCH ×2 (09:45→20:24)
[2018-02-19] MEDS: CARVEDILOL 3.125 MG TABLET PO SCH ×2 (09:45→20:08)
[2018-02-19] MEDS: ZINC GLUCONATE 50 MG TABLET PO SCH (09:45)
[2018-02-19] MEDS: CALCIUM (CARBONATE)/VITAMIN D 600 MG-400 UNIT TABLET PO SCH ×2 (09:45→20:07)
[2018-02-19] MEDS: GABAPENTIN 600 MG TABLET PO SCH ×4 (09:45→20:23)
[2018-02-19] MEDS: FONDAPARINUX 2.5 MG/0.5 ML SYRINGE SUBCUT SCH (09:46)
[2018-02-19] MEDS: PANTOPRAZOLE 40 MG TABLET PO SCH (09:47)
[2018-02-19] MEDS: AMITRIPTYLINE 25 MG TABLET PO SCH (20:08)
[2018-02-19] MEDS: diphenhydrAMINE CAP 25 MG CAPSULE PO SCH (20:08)
[2018-02-19] MEDS: INSULIN GLARGINE 100 UNIT/ML SUBCUT SCH (20:09)
[2018-02-19] MEDS: ATORVASTATIN 10 MG TABLET PO SCH (20:09)
[2018-02-20] MEDS: INSULIN LISPRO 100 UNIT/ML SUBCUT SCH ×4 (01:03→18:51)
[2018-02-20 05:40] LABS: Albumin 2.1 G/DL (3.4-5.0); Bilirubin,Total 1.3 MG/DL (0.2-1.0); Calcium 8.4 MG/DL (8.5-10.1); Osmolality,Calculated 278.7 MOS/KG (273-304); Potassium 3.7 MMOL/L (3.5-5.1); Total Protein 6.6 G/DL (6.4-8.3)
[2018-02-20 05:41] LABS: Basophils # 0.1 10*3/uL (0.0-0.2); Basophils % 0.6 % (0.0-0.8); Eosinophils # 0.7 10*3/uL (0.0-0.87); Eosinophils % 3.9 % (0.00-10.9); Hematocrit 34.5 VOL% (35.7-47.0); Hemoglobin 10.6 GM/DL (12.0-16.0); Immature Granulocytes % 3.3 %; Immature Granulocytes Absolute 0.59 #; Lymphocytes # 3.7 10*3/uL (1.4-4.0); Lymphocytes % 20.8 % (21.3-54.2); Mean Corpuscular HGB Conc 30.7 GM/DL (32-36); Mean Corpuscular Hemoglobin 26 PG (27-34); Mean Corpuscular Volume 85.8 FL (87-102); Mean Platelet Volume 9.9 FL (9.6-12.0); Monocytes # 1.8 10*3/uL (0.11-0.8); Monocytes % 9.9 % (1.7-12.7); NRBC # 0.05 10*3/uL; Neutrophils # 11.1 10*3/uL (1.4-7.4); Neutrophils % 61.5 % (38.7-73.9); Platelet Count 527 T/CUMM (130-400); Red Blood Count 4.02 MC/CUMM (3.8-5.5)
[2018-02-20] MEDS: MULTIVITAMIN (CENTRUM) TABLET PO SCH ×2 (10:56→20:41)
[2018-02-20] MEDS: MAGNESIUM CHLORIDE 64 MG TABLET PO SCH ×2 (10:57→20:41)
[2018-02-20] MEDS: DOCUSATE SODIUM 100 MG CAPSULE PO SCH ×2 (10:57→20:44)
[2018-02-20] MEDS: GABAPENTIN 600 MG TABLET PO SCH ×4 (10:57→20:41)
[2018-02-20] MEDS: metFORMIN 500 MG TABLET PO SCH ×2 (10:57→18:12)
[2018-02-20] MEDS: FERROUS SULFATE 325 MG TABLET PO SCH (10:57)
[2018-02-20] MEDS: CALCIUM (CARBONATE)/VITAMIN D 600 MG-400 UNIT TABLET PO SCH ×2 (10:57→20:41)
[2018-02-20] MEDS: FAMOTIDINE 20 MG TABLET PO SCH ×2 (10:58→20:41)
[2018-02-20] MEDS: CARVEDILOL 3.125 MG TABLET PO SCH ×2 (10:58→20:43)
[2018-02-20] MEDS: CHOLECALCIFEROL 1,000 UNIT TABLET PO SCH (11:04)
[2018-02-20] MEDS: ZINC GLUCONATE 50 MG TABLET PO SCH (11:04)
[2018-02-20] MEDS: CHLORTHALIDONE 25 MG TABLET PO SCH (11:05)
[2018-02-20] MEDS: FONDAPARINUX 2.5 MG/0.5 ML SYRINGE SUBCUT SCH (11:05)
[2018-02-20] MEDS: PANTOPRAZOLE 40 MG TABLET PO SCH (11:05)
[2018-02-20] MEDS: diphenhydrAMINE CAP 25 MG CAPSULE PO SCH (20:41)
[2018-02-20] MEDS: AMITRIPTYLINE 25 MG TABLET PO SCH (20:42)
[2018-02-20] MEDS: ATORVASTATIN 10 MG TABLET PO SCH (20:42)
[2018-02-20] MEDS: INSULIN GLARGINE 100 UNIT/ML SUBCUT SCH (20:43)
[2018-02-21] MEDS: INSULIN LISPRO 100 UNIT/ML SUBCUT SCH ×3 (00:54→12:52)
[2018-02-21] MEDS: FONDAPARINUX 2.5 MG/0.5 ML SYRINGE SUBCUT SCH (08:50)
[2018-02-21] MEDS: CHOLECALCIFEROL 1,000 UNIT TABLET PO SCH (08:51)
[2018-02-21] MEDS: CHLORTHALIDONE 25 MG TABLET PO SCH (08:51)
[2018-02-21] MEDS: metFORMIN 500 MG TABLET PO SCH (08:51)
[2018-02-21] MEDS: CALCIUM (CARBONATE)/VITAMIN D 600 MG-400 UNIT TABLET PO SCH (08:51)
[2018-02-21] MEDS: FERROUS SULFATE 325 MG TABLET PO SCH (08:52)
[2018-02-21] MEDS: MAGNESIUM CHLORIDE 64 MG TABLET PO SCH (08:52)
[2018-02-21] MEDS: FAMOTIDINE 20 MG TABLET PO SCH (08:52)
[2018-02-21] MEDS: MULTIVITAMIN (CENTRUM) TABLET PO SCH (08:52)
[2018-02-21] MEDS: ZINC GLUCONATE 50 MG TABLET PO SCH (08:52)
[2018-02-21] MEDS: GABAPENTIN 600 MG TABLET PO SCH ×2 (08:52→12:52)
[2018-02-21] MEDS: DOCUSATE SODIUM 100 MG CAPSULE PO SCH (08:52)
[2018-02-21] MEDS: CARVEDILOL 3.125 MG TABLET PO SCH (08:58)
[2018-02-21] MEDS: PANTOPRAZOLE 40 MG TABLET PO SCH (08:58)
[2018-02-21 12:20] VITALS: BP 121/63
== END 2018-02-21 14:16 | disposition swing bed (61) | DRG 481 ==
LOC: EDUNIT# → EDBD → N.ED 21:05 → N.EDINP 22:17 → N.3E 22:37 → N.4E 02-11 17:47
PROVIDERS: ADMIT Orthopaedic Surgery; ATTEND Orthopaedic Surgery